=== PATIENT | female | born 1985 | race Caucasian/White ===

== ENCOUNTER 2019-09-07 12:13 | Emergency (ER) | payer OTHER ==
[2019-09-07] MEDS ORDERED: NA CHLORIDE 0.9% 1,000 ML ONE (15:31)
[2019-09-07 15:36] LABS: Urine Blood TRACE (NEG); Urine Glucose NEGATIVE (NEG); Urine Protein NEGATIVE (NEG); Urine Specific Gravity 1.025 (1.005-1.030)
[2019-09-07 15:38] LABS: Absolute Lymphocytes (CBC) 1.5 K/uL (0.7-4.9); Basophils % 0.4 % (0-1.3); Hematocrit 34.6 % (36.0-45.0); Lymphocytes % 11.2 % (15.3-44.8); MPV 7.9 fL (7.6-11.3); RBC Red Blood Cell Count 3.87 M/uL (3.86-4.86)
[2019-09-07 15:42] LABS: BUN Blood Urea Nitrogen 5 mg/dL (7-18); Bicarbonate 23 mmol/L (21-32); Glucose Level 82 mg/dL (74-106); Potassium 3.6 mmol/L (3.5-5.1); Sodium Level 139 mmol/L (136-145)
[2019-09-07 15:43] LABS: Urine Bacteria <20 /HPF (<20); Urine RBC <5 /HPF (NONE SEEN)
[2019-09-07 15:44] LABS: Urine Culture Reflex Order NOT NEEDED
--- NOTE | 2019-09-07 16:36 | ER ---
Nurse's Notes [facility] Name: Sujey Hough Age: 34 yrs Sex: Female : 1985 Arrival Date: 09/07/2019 Time: 12:19 Bed 24 Private MD: Diagnosis: Vomiting; related conditions, unspecified, second trimester Presentation: 09/06 12:32 Chief complaint: Patient states: 24 weeks , lower back pain and abd cramping, sv and nausea/decreased appetite today, soft BM today. Coronavirus screen: Proceed with normal triage. Patient denies a cough. Patient denies shortness of breath or difficulty breathing. Patient denies measured and/or subjective temperature greater than 100.4F prior to today's visit. Patient denies travel on a cruise ship or to a country the [facility] currently lists as an affected area. Patient denies contact with known and/or suspected case of COVID-19. Ebola Screen: No symptoms or risks identified at this time. Risk Assessment: Do you want to hurt yourself or someone else? Patient reports no desire to harm self or others. Onset of symptoms was September 07, 2019. 12:32 Method Of Arrival: Ambulatory sv 12:32 Acuity: LANIE 3 sv 12:34 Initial Sepsis Screen: Does the patient meet any 2 criteria? No. Patient's initial sv sepsis screen is negative. Does the patient have a suspected source of infection? No. Patient's initial sepsis screen is negative. Triage Assessment: 14:05 General: Appears in no apparent distress. comfortable, Behavior is calm, cooperative. ls4 14:05 Pain: Denies pain. Neuro: No deficits noted. Cardiovascular: No deficits noted. ls4 Respiratory: No deficits noted. GI: No deficits noted. : No deficits noted. Derm: No deficits noted. No signs and/or symptoms reported regarding the dermatologic system. [employer]: 14:20 3, Full Term 3, 0, Living 3 pm1 Historical: - Allergies: 12:34 No Known Allergies; sv - PMHx: 12:34 Asthma; sv - PSHx: 12:34 Tubal ligation; sv - Immunization history:: Adult Immunizations up to date. - Social history:: Smoking status: Patient denies any tobacco usage or history of. Screenin:03 Abuse screen: Denies threats or abuse. Denies injuries from another. Nutritional ls4 screening: No deficits noted. Tuberculosis screening: No symptoms or risk factors identified. Fall Risk None identified. Vital Signs: 12:34 BP 122 / 74; Pulse 89; Resp 20; Pulse Ox 99% ; Weight 86.18 kg; Height 5 ft. 6 in. sv (167.64 cm); 14:30 BP 120 / 72; Pulse 78; Resp 18; Pulse Ox 99% on R/A; Pain 0/10; ls4 12:34 Body Mass Index 30.67 (86.18 kg, 167.64 cm) ED Course: 12:19 Patient arrived in ED. mr 12:34 Triage completed. sv 12:34 Arm band placed on. sv 14:02 Teena Hammonds, LAUREN is Primary Nurse. ls4 14:03 Patient has correct armband on for positive identification. Bed in low position. Call ls4 light in reach. Side rails up X 1. Pulse ox on. NIBP on. Warm blanket given. Verbal reassurance given. 14:12 Esteban Milian NP is PHCP. pm1 14:12 Asher Ruiz MD is Attending Physician. pm1 14:28 No apparent distress. ls4 14:28 No provider procedures requiring assistance completed. Inserted saline lock: 18 gauge ls4 in left antecubital area, using aseptic technique. 14:28 Initial lab(s) drawn, by me, sent to lab. Urine collected: clean catch specimen, clear. ls4 Patient maintains SpO2 saturation greater than 95% on room air. 16:55 IV discontinued, intact, bleeding controlled, No redness/swelling at site. Pressure ls4 dressing applied. Administered Medications: 14:32 Drug: NS 0.9% 1000 ml Route: IV; Rate: 1000 ml; Site: left antecubital; ls4 15:02 Follow up: 1000 ml infused. infusion complete 1535 ls4 Intake: Outcome: 16:36 Discharge ordered by . pm1 17:00 Discharged to home ambulatory. ls4 17:00 Condition: stable 17:00 Discharge instructions given to patient, Instructed on discharge instructions, follow up and referral plans. safety practices, Demonstrated understanding of instructions, follow-up care. 17:01 Patient left the ED. ls4 Signatures: Rajni Ordoñez RN RN Ida Delgado mr Esteban Milian NP SHINGLE CARRIER pm1 Teena Hammonds RN RN ls4 Corrections: (The following items were deleted from the chart) 12:37 12:32 Chief complaint: Patient states: 24 weeks , lower back pain and abd sv cramping, and nausea, soft BM today. sv
--- NOTE | 2019-09-07 16:37 | EDPHYS ---
Physician Documentation [facility] Name: Sujey Hough Age: 34 yrs Sex: Female : 1985 Arrival Date: 09/07/2019 Time: 12:19 Bed 24 Private MD: ED Physician Asher Ruiz HPI: 09/06 14:20 This 34 yrs old Female presents to ER via Ambulatory with complaints of 24 pm1 wks dehydration. 14:20 The patient presents to the emergency department with bilateral lower back pain and pm1 lower abdominal cramping. Increased urination. The estimated gestational age is 24 weeks. course: care: private OB physician, Risk/complications: no obvious risks or complications are appreciated. Previous pregnancies: in previous pregnancies patient has had no complications. Associated signs and symptoms: Pertinent positives: Low back pain, vomit x 2. Loose stools. abdominal cramps, Pertinent negatives: diarrhea, dysuria, fever. The patient has not experienced similar symptoms in the past. 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 - Social history:: Smoking status: Patient denies any tobacco usage or history of. ROS: 14:20 Constitutional: Negative for fever, chills, and weight loss, Eyes: Negative for injury, pm1 pain, redness, and discharge, ENT: Negative for injury, pain, and discharge, Neck: Negative for injury, pain, and swelling, Cardiovascular: Negative for chest pain, palpitations, and edema, Respiratory: Negative for shortness of breath, cough, wheezing, and pleuritic chest pain. 14:20 : Negative for injury, bleeding, discharge, and swelling. 14:20 MS/Extremity: Negative for injury and deformity, Skin: Negative for injury, rash, and discoloration, Neuro: Negative for headache, weakness, numbness, tingling, and seizure. 14:20 Abdomen/GI: Positive for abdominal cramps, of the suprapubic area. 14:20 Back: Positive for of the left low back and right low back, pain. Exam: 14:20 Constitutional: This is a well developed, well nourished patient who is awake, alert, pm1 and in no acute distress. Head/Face: Normocephalic, atraumatic. 14:20 Back: No spinal tenderness. No costovertebral tenderness. Full range of motion. Skin: Warm, dry with normal turgor. Normal color with no rashes, no lesions, and no evidence of cellulitis. MS/ Extremity: Pulses equal, no cyanosis. Neurovascular intact. Full, normal range of motion. 14:20 Cardiovascular: Exam negative for acute changes, Rate: normal, Rhythm: regular, Pulses: no pulse deficits are appreciated. 14:20 Respiratory: Exam negative for acute changes, respiratory distress, shortness of breath, wheezing. 14:20 Abdomen/GI: Inspection: gravid appearance, is noted, Palpation: abdomen is soft and non-tender, in all quadrants, Indicators: McBurney's point is not tender, Dalton's sign is negative, Rovsing's sign is negative, Obturator sign is negative, Psoas sign is negative. 14:20 Neuro: Exam negative for acute changes, Orientation: is normal, Mentation: is normal, Motor: is normal, moves all fours. Vital Signs: 12:34 BP 122 / 74; Pulse 89; Resp 20; Pulse Ox 99% ; Weight 86.18 kg; Height 5 ft. 6 in. sv (167.64 cm); 14:30 BP 120 / 72; Pulse 78; Resp 18; Pulse Ox 99% on R/A; Pain 0/10; ls4 12:34 Body Mass Index 30.67 (86.18 kg, 167.64 cm) sv MDM: 14:13 Patient medically screened. pm1 16:02 Differential diagnosis: UTI, appendicitis, related pain, round ligament pain, pm1 gastroenteritis, food poisoning. 16:29 Data reviewed: vital signs. Data interpreted: Pulse oximetry: on room air is 99 %. pm1 Interpretation: normal. Counseling: I had a detailed discussion with the patient and/or guardian regarding: the historical points, exam findings, and any diagnostic results supporting the discharge/admit diagnosis, lab results, the need for outpatient follow up, to return to the emergency department if symptoms worsen or persist or if there are any questions or concerns that arise at home. 09/06 14:20 Order name: Basic Metabolic Panel; Complete Time: 15:56 pm1 09/06 14:20 Order name: CBC with Diff; Complete Time: 15:56 pm1 09/06 14:20 Order name: IV Saline Lock; Complete Time: 15:50 pm1 09/06 14:20 Order name: Urine Microscopic Only; Complete Time: 15:56 pm1 09/06 15:19 Order name: Urine Dipstick--Ancillary (enter results); Complete Time: 15:56 mt 09/06 14:20 Order name: Labs collected and sent; Complete Time: 15:50 pm1 09/06 14:20 Order name: NPO; Complete Time: 15:50 pm1 09/06 14:20 Order name: Urine Dipstick-Ancillary (obtain specimen); Complete Time: 15:50 pm1 Administered Medications: 14:32 Drug: NS 0.9% 1000 ml Route: IV; Rate: 1000 ml; Site: left antecubital; ls4 15:02 Follow up: 1000 ml infused. infusion complete 1535 ls4 Disposition: 20:57 Co-signature as Attending Physician, Asher Ruiz MD I agree with the assessment and patricia plan of care. Disposition: 09/07/19 16:36 Discharged to Home. Impression: Vomiting, related conditions, unspecified, second trimester. - Condition is Stable. - Discharge Instructions: Abdominal Pain During , Nausea and Vomiting, Adult. - Medication Reconciliation Form, Thank You Letter, Antibiotic Education, Prescription Opioid Use form. - Follow up: Emergency Department; When: As needed; Reason: Worsening of condition. Follow up: Private Physician; When: 2 - 3 days; Reason: Recheck today's complaints, Continuance of care, Re-evaluation by your physician. - Problem is new. - Symptoms have improved. Signatures: Dispatcher [employer] Rajni Farias RN RN sv Anderson, Corey, MD MD cha Marinas, Patrick, SYSTEMS PROGRAMMER ANALYST SYSTEMS PROGRAMMER ANALYST pm1 Teena Hammonds RN RN ls4 Corrections: (The following items were deleted from the chart) 17:01 16:36 09/07/2019 16:36 Discharged to Home. Impression: Vomiting; related ls4 conditions, unspecified, second trimester. Condition is Stable. Forms are Medication Reconciliation Form, Thank You Letter, Antibiotic Education, Prescription Opioid Use. Follow up: Emergency Department; When: As needed; Reason: Worsening of condition. Follow up: Private Physician; When: 2 - 3 days; Reason: Recheck today's complaints, Continuance of care, Re-evaluation by your physician. Problem is new. Symptoms have improved. pm1
[2019-09-07 17:15] VITALS: BP 122/74; O2SAT 99
== END 2019-09-07 17:01 | disposition home or self-care (01) ==
LOC: ER 12:13
DX: O26.892 Other specified pregnancy related conditions, second trimester (principal); Z3A.24 24 weeks gestation of pregnancy
CPT/HCPCS: 85025; 80048; 36415; 99284; J7030; 81003; 81015